=== PATIENT | female | born 1940 | race Two or more races ===

== ENCOUNTER 2021-11-24 23:53 | Inpatient (IN) | payer OTHER ==
[~2021-11-24] VITALS: Ht 172.7 cm; Wt 80.9 kg
[2021-11-25] MEDS ORDERED: NITROGLYCERIN 2% OINT 1GM PKG TD STA (00:01)
[2021-11-25] MEDS ORDERED: ASPirin 81 mg TAB PO ONE (00:15)
[2021-11-25] MEDS ORDERED: MORPHINE SULFATE 4 MG/ML SYR/VIAL ONE (00:40)
[2021-11-25 00:44] LABS: Basophils # (auto) 0.1 10 ^3/uL (0-0.2); Basophils % (auto) 0.9 % (0.0-2.0); Eosinophils # (auto) 0.1 10 ^3/uL (0-0.8); Eosinophils % (auto) 0.8 % (0.0-7.0); Hematocrit 30.9 % (36.0-46.0); Hemoglobin 10.2 g/dL (12.2-16.2); Lymphocytes # (auto) 1.6 10 ^3/uL (0.4-5.4); Lymphocytes % (auto) 18.1 % (10.0-50.0); Mean Corpuscular Hemoglobin 28.5 pg (28.0-32.0); Mean Corpuscular Hgb Conc. 33.2 g/dL (32.0-36.0); Mean Corpuscular Volume 85.9 fL (80.0-100.0); Monocytes # (auto) 0.4 10 ^3/uL (0-1.3); Monocytes % (auto) 4.3 % (0.0-12.0); Neutrophils # (auto) 6.8 10 ^3/uL (1.6-8.6); Neutrophils % (auto) 75.9 % (37.0-80.0); Red Cell Distribution Width 15.2 % (11.8-14.3); White Blood Cell 8.9 10^3/uL (4.4-10.8)
[2021-11-25] MEDS ORDERED: HEPARIN SODIUM (PORCINE) 5000 UNITS/ML 1ML VIAL IV ONE (00:45)
[2021-11-25] MEDS ORDERED: SODIUM CHLORIDE 0.9% 1,000 ML IV ONE (00:45)
[2021-11-25] MEDS ORDERED: MORPHINE SULFATE 4 MG/ML SYR/VIAL IV ONE (01:00)
[2021-11-25] MEDS ORDERED: FUROSEMIDE 100 MG/10ML VIAL IV ONE (01:00)
[2021-11-25 01:03] LABS: Albumin 3.5 g/dL (3.4-5.0); BUN/Creatinine Ratio 25.5; Calcium 9.3 mg/dL (8.5-10.1); Magnesium 1.8 mg/dL (1.6-2.6); Potassium 4.1 mmol/L (3.5-5.1)
[2021-11-25 01:06] LABS: Bilirubin, Total 0.3 mg/dL (0.2-1.0); Total Protein 7.8 g/dL (6.4-8.2)
[2021-11-25 01:11] VITALS: BP 147/70
[2021-11-25 01:15] VITALS: BP 147/70
[2021-11-25 01:59] VITALS: BP 154/77
[2021-11-25] MEDS: HEPARIN DRIP/D5W 100UNITS/ML 250 ML IV SCH ×3 (02:48→14:59)
[2021-11-25 03:11] LABS: INR 1.1 (0.9-1.15)
[2021-11-25 03:15] LABS: Partial Thromboplastin Time 129.6 sec (23.6-33.0)
[2021-11-25] MEDS ORDERED: NITROGLYCERIN 0.4 MG SL TAB SL PRN (03:30)
[2021-11-25] MEDS ORDERED: ONDANSETRON HCL 4 MG/2 ML VIAL IV PRN (03:30)
[2021-11-25] MEDS ORDERED: MORPHINE SULFATE INJ 2 MG/ml SYRG IV PRN (03:30)
[2021-11-25 03:59] VITALS: BP 139/59
[2021-11-25 05:38] LABS: Basophils # (auto) 0.1 10 ^3/uL (0-0.2); Basophils % (auto) 0.7 % (0.0-2.0); Eosinophils # (auto) 0.1 10 ^3/uL (0-0.8); Eosinophils % (auto) 0.5 % (0.0-7.0); Hematocrit 31.6 % (36.0-46.0); Hemoglobin 10.4 g/dL (12.2-16.2); Lymphocytes # (auto) 1.6 10 ^3/uL (0.4-5.4); Lymphocytes % (auto) 15.6 % (10.0-50.0); Mean Corpuscular Hemoglobin 28.2 pg (28.0-32.0); Mean Corpuscular Hgb Conc. 32.8 g/dL (32.0-36.0); Monocytes # (auto) 0.8 10 ^3/uL (0-1.3); Monocytes % (auto) 7.8 % (0.0-12.0); Neutrophils # (auto) 7.6 10 ^3/uL (1.6-8.6); Neutrophils % (auto) 75.4 % (37.0-80.0); Red Blood Cells 3.68 10^6/uL (4.0-5.20); Red Cell Distribution Width 15.6 % (11.8-14.3); White Blood Cell 10.1 10^3/uL (4.4-10.8)
[2021-11-25 05:56] LABS: Calcium 9.1 mg/dL (8.5-10.1); Magnesium 1.6 mg/dL (1.6-2.6); Potassium 3.7 mmol/L (3.5-5.1)
[2021-11-25 05:59] LABS: BUN/Creatinine Ratio 28.9
[2021-11-25 09:00] LABS: INR 1.06 (0.9-1.15)
[2021-11-25 09:01] LABS: Partial Thromboplastin Time 92.2 sec (23.6-33.0)
[2021-11-25] MEDS: ASPirin 81 mg TAB PO SCH (09:25)
[2021-11-25] MEDS: DOCUSATE SOD 100 MG CAP PO SCH (09:25)
[2021-11-25] MEDS: CLOPIDOGREL BISULFATE 75 MG TAB PO SCH (09:26)
[2021-11-25] MEDS: METOPROLOL TARTRATE 25 MG TAB PO SCH ×2 (09:26→22:20)
[2021-11-25] MEDS: LISINOPRIL 10 MG TAB PO SCH (09:27)
[2021-11-25] MEDS ORDERED: ENOXAPARIN SOD 80 MG/0.8ML SYRINGE SC SCH (10:00)
[2021-11-25 14:06] LABS: INR 1.09 (0.9-1.15); Partial Thromboplastin Time 54.4 sec (23.6-33.0)
[2021-11-25] MEDS: MORPHINE SULFATE 4 MG/ML SYR/VIAL IV PRN (15:48)
[2021-11-25] MEDS: ACETAMINOPHEN 325 MG TAB PO PRN (19:40)
[2021-11-25 21:16] LABS: INR 1.1 (0.9-1.15); Partial Thromboplastin Time 47.9 sec (23.6-33.0)
[2021-11-25] MEDS: ATORVASTATIN 20 MG TAB PO SCH (22:20)
[2021-11-26] VITALS (7 sets, daily range): BP systolic 138–173; BP diastolic 59–78
[2021-11-26 01:37] LABS: INR 1.12 (0.9-1.15)
[2021-11-26 01:44] LABS: Partial Thromboplastin Time 72.2 sec (23.6-33.0)
[2021-11-26] MEDS: MORPHINE SULFATE 4 MG/ML SYR/VIAL IV PRN (05:21)
[2021-11-26 06:26] LABS: Basophils # (auto) 0 10 ^3/uL (0-0.2); Basophils % (auto) 0.5 % (0.0-2.0); Eosinophils # (auto) 0 10 ^3/uL (0-0.8); Eosinophils % (auto) 0.4 % (0.0-7.0); Hematocrit 30.6 % (36.0-46.0); Hemoglobin 10.2 g/dL (12.2-16.2); Lymphocytes # (auto) 1.8 10 ^3/uL (0.4-5.4); Lymphocytes % (auto) 18.2 % (10.0-50.0); Mean Corpuscular Hemoglobin 28.2 pg (28.0-32.0); Mean Corpuscular Hgb Conc. 33.3 g/dL (32.0-36.0); Mean Corpuscular Volume 84.7 fL (80.0-100.0); Monocytes # (auto) 1.4 10 ^3/uL (0-1.3); Monocytes % (auto) 13.6 % (0.0-12.0); Neutrophils # (auto) 6.8 10 ^3/uL (1.6-8.6); Neutrophils % (auto) 67.3 % (37.0-80.0); Red Blood Cells 3.61 10^6/uL (4.0-5.20); Red Cell Distribution Width 15.3 % (11.8-14.3)
[2021-11-26 06:31] LABS: Albumin 3.2 g/dL (3.4-5.0); BUN/Creatinine Ratio 28.3; Calcium 9.8 mg/dL (8.5-10.1); Potassium 3.5 mmol/L (3.5-5.1)
[2021-11-26 06:34] LABS: Bilirubin, Total 0.6 mg/dL (0.2-1.0); Total Protein 7.3 g/dL (6.4-8.2)
[2021-11-26] MEDS: ASPirin 81 mg TAB PO SCH (08:37)
[2021-11-26] MEDS: DOCUSATE SOD 100 MG CAP PO SCH (08:37)
[2021-11-26] MEDS: METOPROLOL TARTRATE 25 MG TAB PO SCH ×2 (08:38→22:39)
[2021-11-26] MEDS: CLOPIDOGREL BISULFATE 75 MG TAB PO SCH (08:38)
[2021-11-26] MEDS: LISINOPRIL 10 MG TAB PO SCH (08:38)
[2021-11-26] MEDS: ACETAMINOPHEN 325 MG TAB PO PRN (09:00)
[2021-11-26 09:22] LABS: INR 1.11 (0.9-1.15)
[2021-11-26 09:31] LABS: Partial Thromboplastin Time 83.7 sec (23.6-33.0)
[2021-11-26] MEDS: HEPARIN DRIP/D5W 100UNITS/ML 250 ML IV SCH (09:57)
[2021-11-26] MEDS ORDERED: ATOR-47 PO (13:35)
[2021-11-26] MEDS ORDERED: ANAS1TAB7 PO (13:35)
[2021-11-26] MEDS ORDERED: HYDR25TA4 PO (13:35)
[2021-11-26] MEDS ORDERED: ATEN50TA PO (13:35)
[2021-11-26] MEDS ORDERED: ISOS60TA24 PO (13:35)
[2021-11-26] MEDS ORDERED: SPIR25TA8 PO (13:35)
[2021-11-26] MEDS ORDERED: LOSA-39 PO (13:35)
[2021-11-26] MEDS ORDERED: AMLO-489 PO (13:35)
[2021-11-26] MEDS ORDERED: HYDR-4296 PO (13:35)
[2021-11-26] MEDS: HYDROcodone-ACET 5/325MG TAB PO PRN ×2 (14:33→20:40)
[2021-11-26 16:00] LABS: INR 1.12 (0.9-1.15); Partial Thromboplastin Time 66.1 sec (23.6-33.0)
[2021-11-26 22:31] LABS: INR 1.1 (0.9-1.15); Partial Thromboplastin Time 60.9 sec (23.6-33.0)
[2021-11-26] MEDS: ATORVASTATIN 20 MG TAB PO SCH (22:39)
== END 2021-11-26 22:45 | disposition short-term general hospital (02) | DRG 281 ==
LOC: EDBD 23:53 → ER 23:53 → TELE 11-25 03:22 → TELE-CENTR 11-25 21:37
PROVIDERS: ADMIT Hospitalist; ATTEND Internal Medicine
PROC: 5A09357 Assistance with Respiratory Ventilation, Less than 24 Consecutive Hours, Continuous Positive Airway Pressure (ICD-10-PCS; principal; 2021-11-25)
DX: I21.4 Non-ST elevation (NSTEMI) myocardial infarction (principal); I13.0 Hypertensive heart and chronic kidney disease with heart failure and stage 1 through stage 4 chronic kidney disease, or unspecified chronic kidney disease; E78.5 Hyperlipidemia, unspecified; I25.10 Atherosclerotic heart disease of native coronary artery without angina pectoris; N18.30 Chronic kidney disease, stage 3 unspecified; I50.9 Heart failure, unspecified; Z20.822 Contact with and (suspected) exposure to COVID-19; R91.8 Other nonspecific abnormal finding of lung field; Z87.891 Personal history of nicotine dependence
CPT/HCPCS: 36415; 36600; 71045; 71250; 80048; 80053; 80061; 82805; 83735; 83880; 84484; 85025; 85379; 85610; 85730; 87804; 93005; 96361; 96374; 96375; G0378